=== PATIENT | female | born 1950 | race Caucasian/White ===

== ENCOUNTER → 2024-11-26 | Outpatient (REF) | payer MEDICARE | LOC: MAMMO 12:52 | PROVIDERS: ATTEND Family Medicine | DX: N63.25 Unspecified lump in the left breast, overlapping quadrants (principal); N63.15 Unspecified lump in the right breast, overlapping quadrants; N64.52 Nipple discharge; Z80.3 Family history of malignant neoplasm of breast; Z80.0 Family history of malignant neoplasm of digestive organs | CPT/HCPCS: 77066 ==